=== PATIENT | male | born 1955 | race Caucasian/White ===

== ENCOUNTER → 2023-11-24 06:50 | Outpatient (REF) | payer MEDICARE, OTHER, SELFPAY | LOC: RAD 06:50 | PROVIDERS: ATTENDING PHYSICIAN Family Medicine | DX: Z87.891 Personal history of nicotine dependence (principal) | CPT/HCPCS: 71271 ==

== ENCOUNTER → 2023-12-23 06:23 | Day surgery (SDC) | payer MEDICARE, OTHER, SELFPAY | LOC: GI 06:23 | PROVIDERS: ATTENDING PHYSICIAN Specialist | DX: Z12.11 Encounter for screening for malignant neoplasm of colon (principal); D12.3 Benign neoplasm of transverse colon; D12.4 Benign neoplasm of descending colon; K63.5 Polyp of colon; K56.2 Volvulus; Z86.010 Personal history of colon polyps | CPT/HCPCS: 45385; 88305 ==

== ENCOUNTER 2024-07-07 05:03 | Emergency (ER) | payer MEDICARE, OTHER, SELFPAY ==
[2024-07-07 05:05] VITALS: BP 159/85
[2024-07-07 05:53] LABS: % Basophils 1.1 % (0-2); % Eosinophils 3.7 % (0-6); % Immature Granulocytes 0.4 % (0-0.5); % Monocytes 10.5 % (1.7-9.3); % Neutrophils 58.3 % (42.2-75.2); Absolute Basophils 0.1 10^3/uL (0-0.2); Absolute Eosinophils 0.2 10^3/uL (0-0.7); Absolute Lymphocytes 1.2 10^3/uL (1.2-3.4); Absolute Monocytes 0.5 10^3/uL (0.1-0.6); Absolute Neutrophils 2.7 10^3/uL (1.4-6.5); Hematocrit 40.8 % (39.0-52.0); Hemoglobin 14.1 g/dL (13.0-18.0); Mean Corp Hgb Conc. 34.6 g/dL (33.0-37.0); Mean Corpuscular Hgb 29.7 pg (27.0-31.0); Mean Corpuscular Volume 85.9 fL (80.0-94.0); Mean Platelet Volume 10.6 fL (7.4-10.4); Nucleated Red Blood Cells % 0 % (-); Platelet Count 189 10^3/uL (130-400); Red Blood Cell Count 4.75 10^6/uL (4.70-6.10); Red Cell Dist. Width 12.2 % (11.5-14.5); White Blood Cell Count 4.6 10^3/uL (4.8-10.8)
[2024-07-07 05:58] LABS: ALT (SGPT) 24 U/L (0-50); AST (SGOT) 27 U/L (17-59); Albumin 4.4 g/dl (3.5-5.0); Alkaline Phosphatase 129 U/L (38-126); Blood Urea Nitrogen 28 mg/dl (9-20); Carbon Dioxide 24 mmol/L (22-30); Chloride 105 mmol/L (98-107); Glucose 107 mg/dl (70-99); Magnesium 2.3 mg/dl (1.6-2.3); Potassium 3.3 mmol/L (3.5-5.1); Sodium 139 mmol/L (135-145); Total Bilirubin 1.9 mg/dl (0.2-1.3); eGFR > 60.00
--- NOTE | 2024-07-07 06:03 | ED.GENMED ---
History of Present Illness
General
Chief Complaint: Heart Rate Problem
Time Seen by Provider: 07/07/24 06:02
History of Present Illness
History of Present Illness:
TIME OF INITIAL ENCOUNTER: 6:05 AM
HPI: AFSHIN SIDDIQUI, 69M, ROOM 12. New onset rate controlled AFib. H/o dilated aortic root (4.7cm) and HTN on Valsartan, HCTZ, Amlodipine and Spironolactone. Not sure if he woke w/ palpitations today or was awoken by alert on Apple Watch of
AFib. His HR is around 80s-100s. Had similar symptoms earlier in the month, not anticoagulated. He never had any symptoms of chest pain or shortness of breath. He states that his aortic root dilatation does not involve his aortic valve.
EXAM:
GENERAL: Well appearing in no distress
HEENT: Moist oral mucosa
CARDIOVASCULAR: No murmurs, normal heart rate with rates in the 80s to 100 range, slightly irregular rhythm, No chest wall tenderness
PULMONARY: No respiratory distress, breath sounds are clear and equal
ABDOMEN: Soft with no peritoneal signs, no tenderness
NEUROLOGIC: Excellent strength all extremities, no coordination deficits
PSYCHIATRIC: Appropriate mental status, normal insight and judgement
EXTREMITIES: Nontender, no edema, moves all extremities equally
SKIN: No rash, no lesions
NUMBER AND COMPLEXITY OF PROBLEMS ADDRESSED AT THE ENCOUNTER
� Chronic conditions affecting care: High blood pressure, dilated aortic root
� Acute Exacerbation and/or Progression of Chronic Illness: This is an acute problem
� Differential Diagnosis includes: New onset atrial fibrillation, poorly controlled high blood pressure,
AMOUNT AND/OR COMPLEXITY OF DATA TO BE REVIEWED AND ANALYZED
� I performed an independent evaluation of and my interpretation is:
EKG: Suspect A-fib with ventricular rate of 93
CT:
X-rays:
Laboratory Studies: White count 4.6, hemoglobin normal, potassium slightly low at 3.3, magnesium normal
Other:
� Review of other/old records: Only old records are colonoscopies in 2014
� Clinical information was obtained by an independent historian: I spoke to the at bedside
� Prescriptions/Medications Considered but not given:
� Further testing considered but not performed:
RISK OF COMPLICATIONS AND/OR MORBIDITY OR MORTALITY OF PATIENT MANAGEMENT
� Social determinants of health affecting care:
� Discussion with other providers: I discussed case with Dr. Gutierres who agrees with starting beta-selvin and Eliquis
� Escalation of care including admission/observation vs risk of discharge considered: New onset rate controlled AFib. H/o dilated aortic root (4.7cm) and HTN on Valsartan, HCTZ, Amlodipine and Spironolactone. Not sure if he
woke w/ palpitations today or was awoken by alert on Apple Watch of AFib. His HR is around 80s-100s. Had similar symptoms earlier in the month, not anticoagulated. Unclear timing of onset, therefore recommend against cardioversion. K 3.3
replacing orally. [id number] 2. He reluctantly agrees to go on Eliquis.
ANY OTHER UPDATES:
Patient's heart rate remains in the 80s to 90s. I did go over risks and benefits of Eliquis use with the patient and patient's at bedside.
Phy Exam
Physical Exam
Physical Exam:
See HPI
Scores
[id number] Score for Afib Stroke Risk
Age in Years (65=0, 65-74=1, >/=75=2): 65-74
Sex (Female=+1): Male
Congestive Heart Failure History (Yes=+1): No
Hypertension History (Yes=+1): Yes
Stroke/TIA/Thromboembolism History (Yes=+2): No
Vascular Disease History (Yes=+1): No
Diabetes Mellitus (Yes=+1): No
Score: 2
Anticoagulation Recommendations: Recommend anticoagulation (as validated in nonvalvular fib)
Course
Orders/Labs/Results
Orders:
Orders
07/07/24 05:04
EKG [Electrocardiogram (*1)] Urgent
Reason for Study: Palpitations
EKG- Treatment ONCE
07/07/24 05:18
Cardiac Monitoring- Treatment ONCE
07/07/24 05:26
Complete Blood Count/With Diff Urgent
Comprehensive Metabolic Panel Urgent
Magnesium Urgent
TSH Reflex To Free T4 Urgent
07/07/24 06:05
Potassium Chloride Powder [Klor-Con] 40 meq PO NOW STA
07/07/24 06:25
Apixaban [Eliquis] 5 mg PO NOW STA
07/07/24 06:26
Metoprolol Xl [Toprol Xl] 25 mg PO NOW STA
Abnormal Lab Results
07/07/24
05:26
WBC 4.6 L 10^3/uL
(4.8-10.8)
MPV 10.6 H fL
(7.4-10.4)
Monocytes % 10.5 H %
(1.7-9.3)
Potassium 3.3 L mmol/L
(3.5-5.1)
BUN 28 H mg/dl
(9-20)
Glucose 107 H mg/dl
(70-99)
Total Bilirubin 1.9 H mg/dl
(0.2-1.3)
Alkaline Phosphatase 129 H U/L
(38-126)
07/07/24 05:26
07/07/24 05:26
Vital Signs
Initial and Last Documented VS:
Initial Vital Signs
Temp Pulse Resp BP Pulse Ox
36.9 C 98 16 159/85 97
07/07/24 05:05 07/07/24 05:05 07/07/24 05:05 07/07/24 05:05 07/07/24 05:05
Last Documented Vital Signs
Temp Pulse Resp BP Pulse Ox
36.9 C 90 15 121/64 98
07/07/24 05:05 07/07/24 06:40 07/07/24 05:30 07/07/24 06:40 07/07/24 05:39
*Critical Care Note
Total Time (30-74mins, 75-104mins- exclusive of procedures): Not Applicable
ED Attending Note
-
Portions of this chart may have been created with voice recognition software.� Occasional wrong word or��sound alike� substitutions may have occurred due to the inherent limitations of voice recognition software.
Discharge Plan
Departure
Patient Disposition: Home (Routine Discharge)
Date of Disposition: 07/07/24
Time of Disposition: 06:38
Patient with high blood pressure during this ER visit?: Yes
Discharge Problem:
Atrial fibrillation, new onset
Instructions: Hypokalemia, Atrial Fibrillation (DC), BLOOD PRESSURE
Prescriptions:
New
Eliquis 5 mg tablet
5 mg PO BID Qty: 60 0RF
metoprolol succinate 25 mg tablet extended release 24 hr
25 mg PO DAILY Qty: 30 0RF
Referrals:
Davonte Burleson CRNP [Family Provider] -
Jeff Wiseman MD [Active] - Follow up in 2-3 days
Activity Restrictions/Additional Instructions:
I notified Dr. Gutierres (partner of Dr. ELIGIO Wiseman). He states that his office will call you on Tuesday to arrange close follow-up. Basic blood work including thyroid levels were all normal with exception of a slightly low potassium at 3.3. We gave
you oral potassium supplementation. Next dose of Eliquis tonight. Next dose of beta-selvin (metoprolol) tomorrow morning. I sent these prescriptions to your pharmacy.
Interventions
Interventions:
*Risk Screen - Suicide Last Done: 07/07/24 05:05
*General Assessment Last Done: 07/07/24 05:05
*Neglect/Abuse Screening Last Done: 07/07/24 05:05
ED- Cardiac Assessment Last Done: 07/07/24 05:39
ED- Pulmonary Assessment Last Done: 07/07/24 05:39
Discharge Date and Time
Print Language: FRISIAN
[2024-07-07 06:29] LABS: TSH Reflex To Free T4 1.67 uIU/ml (0.47-4.68)
[2024-07-07 06:38] VITALS: BP 121/64
[2024-07-07] MEDS: TOPROL XL 25 MG PO (06:40)
[2024-07-07] MEDS: ELIQUIS 5 MG PO (06:41)
[2024-07-07] MEDS: KLOR-CON 40 MEQ PO (06:41)
[2024-07-07 06:51] VITALS: BP 121/64
== END 2024-07-07 07:05 | disposition home or self-care (01) ==
LOC: EMR 05:03
PROVIDERS: Emergency Medicine; EMERGENCY PHYSICIAN Emergency Medicine; FAMILY PHYSICIAN Chiropractor
DX: I48.91 Unspecified atrial fibrillation (principal); I10 Essential (primary) hypertension; Z79.01 Long term (current) use of anticoagulants; Z79.899 Other long term (current) drug therapy
CPT/HCPCS: 99283; 80053; 83735; 84443; 85025; 93005

== ENCOUNTER → 2024-08-09 10:09 | Outpatient (REF) | payer MEDICARE, OTHER, SELFPAY | LOC: RCS 10:09 | PROVIDERS: ATTENDING PHYSICIAN Physician Assistant; FAMILY PHYSICIAN Family Medicine | DX: I48.0 Paroxysmal atrial fibrillation (principal); I71.21 Aneurysm of the ascending aorta, without rupture | CPT/HCPCS: 93306 ==

== ENCOUNTER → 2024-09-11 09:32 | Outpatient (REF) | payer MEDICARE, OTHER, SELFPAY | LOC: HWRAD 09:32 | PROVIDERS: ATTENDING PHYSICIAN Family Medicine | DX: Z87.891 Personal history of nicotine dependence (principal) | CPT/HCPCS: 71271 ==

== ENCOUNTER → 2024-11-19 12:50 | Outpatient (REF) | payer MEDICARE, OTHER, SELFPAY | LOC: RAD 12:50 | PROVIDERS: ATTENDING PHYSICIAN Family Medicine | DX: M54.50 Low back pain, unspecified (principal) | CPT/HCPCS: 72110 ==

== ENCOUNTER 2024-11-22 20:22 | Emergency (ER) | payer MEDICARE, OTHER, SELFPAY ==
[2024-11-22 20:37] VITALS: BP 164/81
[2024-11-22 22:32] VITALS: BP 142/74
--- NOTE | 2024-11-22 22:57 | ED.SKININJ ---
HPI-Injury
General
Chief Complaint: Skin Surface Trauma
Source: patient
Exam Limitations: none
Time Seen by Provider: 11/22/24 22:33
Nursing documentation reviewed up to this point in time: agreed with
History of Present Illness-Injury
Initial Injury comments:
Note:
CHIEF COMPLAINT(S)
Laceration to the left ring finger.
HISTORY OF PRESENT ILLNESS
The patient is a 69-year-old male who presented with a one-centimeter diagonal laceration to the pad of his left ring finger. The injury occurred when he accidentally cut his finger, resulting in bleeding. The patient applied pressure to control the
bleeding. The patient�s tetanus immunization is up to date as of March 2021, as per his records at the [facility].
PHYSICAL EXAM
- General: Alert, no acute distress.
- Skin: Laceration noted on the left ring finger.
- Neck: Supple, trachea midline.
- Eye, Ears, Nose, Mouth, and Throat: Oral mucosa moist.
- Cardiovascular: Normal peripheral perfusion, No edema.
- Respiratory: Respirations are non-labored.
- Musculoskeletal: Normal range of motion, normal strength.
PLAN
Evaluate the laceration and facilitate the removal of the ring on the left ring finger. Avoid cutting the ring if possible and consider alternatives such as lubricating to ease removal.
DIFFERENTIAL DIAGNOSIS
The Differential Diagnosis includes, in no particular order and is not limited to:
1. Laceration
CARE-UPDATE
11/22/24 - 22:58
The wound was effectively closed with three simple-interrupted 5-0 nylon sutures following administration of 1% lidocaine without epinephrine. The patient exhibited good tolerance to the procedure. Plan to remove sutures in 5 to 7 days. No immediate
complications observed.
Disposition:
SUMMARY OF ENCOUNTER
The patient, a 69-year-old male, presented with a laceration to the pad of his left ring finger. The injury was treated by closing the wound with sutures. The patients tetanus immunization is up to date as of March 2021.
DISPOSITION
Discharge.
PLAN
The patient will have the sutures removed in 5 to 7 days.
PROCEDURES
The laceration was closed using three simple-interrupted 5-0 nylon sutures following administration of 1% lidocaine without epinephrine. The patient tolerated the procedure well with no immediate complications.
FOLLOW-UP INSTRUCTIONS
The patient is advised to have sutures removed in 5 to 7 days.
MEDICATION RECONCILIATION
Administered 1% lidocaine without epinephrine for the procedure.
DIAGNOSIS
Laceration, finger (ICD-10: S61.219A).
Phy Exam
Physical Exam
Physical Exam:
.
Course
Vital Signs
Initial and Last Documented VS:
Initial Vital Signs
Temp Pulse BP Pulse Ox
98.5 F 79 164/81 98
11/22/24 20:37 11/22/24 20:37 11/22/24 20:37 11/22/24 20:37
Last Documented Vital Signs
Temp Pulse Resp BP Pulse Ox
98.5 F 74 16 142/74 100
11/22/24 20:37 11/22/24 22:32 11/22/24 22:32 11/22/24 22:32 11/22/24 23:05
Procedures
Laceration Closure
Left Distal Fourth Finger:
Size of Wound in cm: 1
Description of Wound Edges: sharp
Anesthesia: 1% Lidocaine
Number of sutures: 3
*Pulse Oximetry
SaO2: 100
Oxygen Mode of Delivery: Room air
Patient hypoxic: no
*Critical Care Note
Total Time (30-74mins, 75-104mins- exclusive of procedures): Not Applicable
ED Attending Note
-
Portions of this chart may have been created with voice recognition software.� Occasional wrong word or��sound alike� substitutions may have occurred due to the inherent limitations of voice recognition software.
Discharge Plan
Departure
Patient Disposition: Home (Routine Discharge)
Date of Disposition: 11/22/24
Time of Disposition: 23:02
Patient with high blood pressure during this ER visit?: Yes
Condition: Good
Discharge Problem:
Laceration of finger
Instructions: Wound Care (DC), Laceration Repair With Stitches (DC), BLOOD PRESSURE
Prescriptions:
No Action
Eliquis 5 mg tablet
5 mg PO BID Qty: 60 0RF
metoprolol succinate 25 mg tablet extended release 24 hr
25 mg PO DAILY Qty: 30 0RF
Referrals:
Davonte Burleson MD [Family Provider, [facility]]
Activity Restrictions/Additional Instructions:
Thank You for choosing [facility].
It was a pleasure meeting you and taking part in your care. We hope for your continued healing and wellness.
Please read discharge instructions in their entirety. However, they are for general education and may not describe your exact diagnosis at discharge. Information on your ER visit and medical conditions were discussed with you along with appropriate
follow up information...
If indicated, please take your medications as instructed and indicated on discharge paperwork.
Please schedule a follow up appointment as directed. Call to schedule an appointment
Please return to the emergency department with ANY change in, persisting, or worsening of symptoms. If any of your symptoms do not improve, or persist, or become more severe within 6-12 hours, please return to the emergency department for further
care.
Please return to the emergency department if you develop a headache, neck pain/stiffness, fever greater than 100.4F, chest pain, shortness of breath, persistent nausea, vomiting, slurred speech, difficulty walking, numbness/tingling, weakness, signs
of infection or any other symptoms that are worrisome to you.
If you have any questions or concerns please do not hesitate to call the Hospital at or E-mail me directly at [email or web address]
Interventions
Interventions:
*Risk Screen - Suicide Last Done: 11/22/24 20:40
*General Assessment Last Done: 11/22/24 22:00
*Neglect/Abuse Screening Last Done: 11/22/24 20:40
*ED- Fall Risk Assessment Last Done: 11/22/24 22:00
*ED COVID-19 Vaccine History Last Done: 11/22/24 23:10
*Nursing Disposition Last Done: 11/22/24 23:10
ED-Skin Assessment Last Done: 11/22/24 22:00
Discharge Date and Time
Discharge Date/Time: 11/22/24 23:10
Print Language: STATELESS
== END 2024-11-22 23:10 | disposition home or self-care (01) ==
LOC: EMR 20:22
PROVIDERS: EMERGENCY PHYSICIAN Student in an Organized Health Care Education/Training Program; FAMILY PHYSICIAN Family Medicine
DX: S61.215A Laceration without foreign body of left ring finger without damage to nail, initial encounter (principal); W45.8XXA Other foreign body or object entering through skin, initial encounter
CPT/HCPCS: 99282; 12001

== ENCOUNTER 2025-03-25 14:31 | Emergency (ER) | payer MEDICARE, OTHER, SELFPAY ==
[2025-03-25 14:42] VITALS: BP 117/94
[2025-03-25 15:07] LABS: Hematocrit 43.3 % (39.0-52.0); Hemoglobin 14.8 g/dL (13.0-18.0); Mean Corp Hgb Conc. 34.2 g/dL (33.0-37.0); Mean Corpuscular Volume 88.2 fL (80.0-94.0); Nucleated Red Blood Cells % 0 % (-); Platelet Count 185 10^3/uL (130-400); Red Cell Dist. Width 12.1 % (11.5-14.5)
[2025-03-25 15:31] LABS: ALT (SGPT) 28 U/L (0-50); AST (SGOT) 29 U/L (17-59); Albumin 4.7 g/dl (3.5-5.0); Alkaline Phosphatase 146 U/L (38-126); Blood Urea Nitrogen 27 mg/dl (9-20); Calcium 9.1 mg/dl (8.4-10.2); Carbon Dioxide 28 mmol/L (22-30); Chloride 104 mmol/L (98-107); Glucose 101 mg/dl (70-99); Potassium 3.9 mmol/L (3.5-5.1); Sodium 136 mmol/L (135-145); Total Protein 8.0 g/dl (6.3-8.2); eGFR > 60.00
[2025-03-25 15:32] VITALS: BMI 38.1
[2025-03-25 15:42] LABS: Troponin I < 0.012 ng/ml
[2025-03-25] MEDS: NSS 500 IV (15:59)
[2025-03-25 16:00] VITALS: BP 139/88
--- NOTE | 2025-03-25 16:26 | ED.GENMED ---
History of Present Illness
General
Chief Complaint: Heart Rate Problem
Source: patient
Exam Limitations: none
Time Seen by Provider: 03/25/25 15:31
History of Present Illness
History of Present Illness:
Patient with history of paroxysmal atrial fibrillation, currently not on any anticoagulation, presents to ED secondary to sudden onset of mid back pain this afternoon. Shortly afterwards, as he was walking upstairs, he experienced a 'fluttering
sensation' in his chest, with his Apple Watch informing him that he is in atrial fibrillation rhythm with heart rate in the 80s to 90s. Denies associated dizziness, nausea, or diaphoresis. Denies chest pain. Denies leg pain or swelling. Denies
recent travel or surgery. Patient medical history significant for aortic aneurysm, found incidentally 2 years ago, which has been monitored with his bicycle rental clerk, Dr. ELIGIO Wiseman, without progression. Of note, patient states that he goes to the gym 3
days a week and works out with weights and machines. Last week, when he worked out with [employer] with twisting, he experienced abdominal pain radiating to the back, which now has improved. Patient also has chronic lower back pain, that he has been
experiencing for a long period of time. Denies urinary or bowel incontinence. Denies difficulty with ambulation. Denies loss of sensation or weakness. Patient spoke with his bicycle rental clerk office, who recommended patient come to ED for an
evaluation
Review of Systems
Review of Systems
Allergies reviewed?: Yes
All Other Systems: ROS reviewed and negative except as documented in HPI and ROS
Constitutional: Reports no symptoms
Cardiac: Reports palpitations; Denies chest pain or diaphoresis
ABD/GI: Reports no symptoms
Musculoskeletal: Reports back pain
Skin: Reports no symptoms
Neurological: Reports no symptoms
Phy Exam
Physical Exam
Physical Exam:
Physical Exam
General: no apparent distress, not acutely ill. afebrile
Head: nc/at. eomi
Neck: supple. normal range of motion.
Heart: irregularly irregular.
Lungs: no acute respiratory distress. clear bilaterally
Abdomen: normal bowel sounds. not tender.
Neuro: alert and oriented x 3. no focal neurological deficits
Skin: no rash
Psychiatric: well kept. interactive and cooperative
Extremities: no edema. no calf tenderness
Scores
[id number] Score for Afib Stroke Risk
Age in Years (65=0, 65-74=1, >/=75=2): 65-74
Sex (Female=+1): Male
Congestive Heart Failure History (Yes=+1): No
Hypertension History (Yes=+1): Yes
Stroke/TIA/Thromboembolism History (Yes=+2): No
Vascular Disease History (Yes=+1): No
Diabetes Mellitus (Yes=+1): No
Score: 2
Anticoagulation Recommendations: Recommend anticoagulation (as validated in nonvalvular fib)
Course
Orders/Labs/Results
Orders:
Orders
03/25/25 14:31
EKG [Electrocardiogram (*1)] Urgent
Reason for Study: Palpitations
03/25/25 14:32
EKG- Treatment ONCE
03/25/25 14:55
Complete Blood Count/With Diff Urgent
Comprehensive Metabolic Panel Urgent
Magnesium Urgent
Troponin I Urgent
03/25/25 15:47
EKG [Electrocardiogram (*1)] Urgent
Reason for Study: Atrial Fibrillation
EKG- Treatment ONCE
03/25/25 15:56
0.9% Sodium Chloride 500 ml [Nss] 500 ml IV BOLUS
03/25/25 15:58
Add On- LAB Urgent
Tests Added?: magnesium
03/25/25 16:41
CT Chest Angio W/wo Iv Contras Urgent
Comment:
Reason For Exam: cp/back pain with hx aortic aneurysm
Abnormal Lab Results
03/25/25
14:55
MPV 10.7 H fL
(7.4-10.4)
Absolute Monos (auto) 0.7 H 10^3/uL
(0.1-0.6)
Monocytes % 10.8 H %
(1.7-9.3)
BUN 27 H mg/dl
(9-20)
Glucose 101 H mg/dl
(70-99)
Alkaline Phosphatase 146 H U/L
(38-126)
03/25/25 14:55
03/25/25 14:55
Vital Signs
Initial and Last Documented VS:
Initial Vital Signs
Temp Pulse BP Pulse Ox
97.7 F 93 117/94 97
03/25/25 14:42 03/25/25 14:42 03/25/25 14:42 03/25/25 14:42
Last Documented Vital Signs
Temp Pulse Resp BP Pulse Ox
97.7 F 74 19 134/95 95
03/25/25 14:42 03/25/25 19:30 03/25/25 19:30 03/25/25 19:00 03/25/25 19:15
MDM/Problems Addressed
MDM/Problems Addressed:
During initial evaluation, patient noted to convert spontaneously to NSR, confirmed by repeat EKG. Due to his midback pain of unclear etiology, will obtain CTA chest to evaluate his aortic aneurysm.
CTA report reviewed and discussed with the patient. Number of incidental findings noted and discussed, to be discussed with his PCP as an outpatient. Patient otherwise is afebrile, hemodynamically stable, and appears comfortable at time of
discharge. Patient is agreeable to restarting Eliquis and metoprolol, as has been recommended in the past. Patient states that he already has both medications at home. He will start Eliquis immediately upon arrival at home tonight. In addition,
recommended that patient call his primary bicycle rental clerk for an outpatient follow-up.
*Pulse Oximetry
SaO2: 98
Oxygen Mode of Delivery: Room air
Patient hypoxic: no
*Critical Care Note
Total Time (30-74mins, 75-104mins- exclusive of procedures): Not Applicable
ED Attending Note
-
Portions of this chart may have been created with voice recognition software.� Occasional wrong word or��sound alike� substitutions may have occurred due to the inherent limitations of voice recognition software.
Discharge Plan
Departure
Patient Disposition: Home (Routine Discharge)
Date of Disposition: 03/25/25
Time of Disposition: 19:39
Patient with high blood pressure during this ER visit?: Yes
Discharge Problem:
Atrial fibrillation
Instructions: Atrial Fibrillation (DC)
Prescriptions:
No Action
Eliquis 5 mg tablet
5 mg PO BID Qty: 60 0RF
metoprolol succinate 25 mg tablet extended release 24 hr
25 mg PO DAILY Qty: 30 0RF
Referrals:
Jeff Wiseman MD [Active, Cardiology]
Maritza Hernandez PA [Family Provider, Family Practice]
Activity Restrictions/Additional Instructions:
As discussed, please restart Eliquis as well as metoprolol immediately, upon discharge. In addition, please contact your primary bicycle rental clerk for an outpatient evaluation.
Interventions
Interventions:
*Risk Screen - Suicide Last Done: 03/25/25 14:45
*General Assessment Last Done: 03/25/25 14:45
*Neglect/Abuse Screening Last Done: 03/25/25 14:45
*ED- Fall Risk Assessment Last Done: 03/25/25 15:32
*ED COVID-19 Vaccine History Last Done: 03/25/25 15:32
*ED Influenza Vaccine History Last Done: 03/25/25 15:32
*Nursing Disposition Last Done: 03/25/25 19:57
ED- Cardiac Assessment Last Done: 03/25/25 15:32
ED- Pulmonary Assessment Last Done: 03/25/25 15:32
Discharge Date and Time
Discharge Date/Time: 03/25/25 19:57
Print Language: AMHARIC
[2025-03-25 17:16] LABS: Magnesium 2.2 mg/dl (1.6-2.3)
[2025-03-25 18:42] VITALS: BP 144/94
[2025-03-25 19:00] VITALS: BP 134/95
== END 2025-03-25 19:57 | disposition home or self-care (01) ==
LOC: EMR 14:31
PROVIDERS: Emergency Medicine; EMERGENCY PHYSICIAN Emergency Medicine; FAMILY PHYSICIAN Family Medicine
DX: I48.91 Unspecified atrial fibrillation (principal); M54.6 Pain in thoracic spine; G89.29 Other chronic pain; Z86.79 Personal history of other diseases of the circulatory system
CPT/HCPCS: 96360; 99284; 71275; 80053; 83735; 84484; 85025; 93005; Q9967